=== PATIENT | male | born 1965 | race Hispanic/Latino ===

== ENCOUNTER 2018-09-08 13:17 | Emergency (ER) | payer SELFPAY ==
[2018-09-08] MEDS ORDERED: Ketorolac Tromethamine 30 MG/ML VIAL ONE (14:43)
--- NOTE | 2018-09-08 15:14 | RAD ---
LUMBOSACRAL SPINE: HISTORY: Back and bilateral hip pain, radiating down the legs for three months. FINDINGS: Three views of the lumbosacral spine show the patient to be status post posterior fusion at L4 throug h S1 with bilateral pedicle screws. No perihardware lucency is seen. Laminectomies have been perfor med at L5. The vertebral bodies demonstrate normal height without acute fracture or subluxation. IMPRESSION: Post surgical changes of the lumbar spine without acute osseous abnormality. POS: NELSY
--- NOTE | 2018-09-08 16:40 | RAD ---
TWO VIEWS RIGHT FEMUR: 09/08/18 HISTORY: Right upper leg pain. COMPARISON: Views right hip on 08/24/12. FINDINGS: There is stable postsurgical changes related to right total hip prosthesis. Alignment is stable and t here is no evidence of a hardware complication. No fracture or dislocation is seen involving the righ t femur. No other findings. IMPRESSION: 1. No acute osseous abnormality right femur. 2. Right total hip prosthesis unchanged compared to a study in 2013. POS: NELSY
--- NOTE | 2018-09-08 16:41 | RAD ---
FOUR VIEWS RIGHT KNEE: 09/08/18 HISTORY: Right upper leg pain. FINDINGS: There is no evidence of a fracture, dislocation, or other osseous abnormality involving the right kne e. Vascular calcifications are seen posterior to the knee. IMPRESSION: No acute osseous abnormality. POS: LOU
== END 2018-09-08 16:30 | disposition home or self-care (01) ==
LOC: ERS 13:17
DX: M25.551 Pain in right hip (principal); F17.210 Nicotine dependence, cigarettes, uncomplicated
CPT/HCPCS: 72100; 96372; J1885

== ENCOUNTER 2019-12-10 17:00 | Inpatient (IN) | payer OTHER, SELFPAY ==
[2019-12-10 18:15] LABS: #Lymphocytes 0.8 thou/uL (1.20-3.40); #Monocytes 0.3 thou/uL (0.11-0.59); #Neutrophils 4.9 thou/uL (1.40-6.50); %Basophils 0.5 % (0.0-1.0); %Eosinophils 0.8 % (0.0-10.0); %Lymphocytes 12.5 % (21.0-51.0); %Monocytes 4.7 % (0.0-10.0); %Neutrophils 81.5 % (42.0-75.0); Hemoglobin 15.4 g/dL (14.0-18.0); Mean Corpuscular HGB CONC 32.9 g/dL (32.0-36.0); Mean Corpuscular Hemoglobin 29.3 pg (27.0-31.0); Mean Platelet Volume 7.7 fL (7.4-10.4); Platelet Count 233 thou/uL (130-400); RBC Distribution Width 11.9 % (11.5-14.5); Red Blood Cell (RBC) Count 5.24 mill/uL (4.70-6.10)
[2019-12-10] MEDS ORDERED: Ondansetron PF 4 MG/2 ML Vial ONE (18:47)
[2019-12-10] MEDS ORDERED: Ketorolac Tromethamine 30 MG/ML VIAL ONE (18:47)
[2019-12-10 18:54] LABS: ALT (SGPT) 35 U/L (8-55); AST (SGOT) 32 U/L (5-34); Albumin 4.2 g/dL (3.5-5.0); Alkaline Phosphatase 69 U/L (40-110); Anion Gap 14 mmol/L (10-20); BUN (Urea Nitrogen) 21 mg/dL (8.4-25.7); Bilirubin, Total 0.3 mg/dL (0.2-1.2); CK (CPK) 138 U/L (30-200); Calc. Creatinine Clearance 0 mL/min (70-130); Carbon Dioxide 20 mmol/L (22-29); Chloride 104 mmol/L (98-107); Estimated GFR-MDRD 65; Globulin 2.7 g/dL (2.4-3.5); Glucose 101 mg/dL (70-105); Magnesium 1.7 mg/dL (1.6-2.6); Potassium 4.3 mmol/L (3.5-5.1); Protein, Total 6.9 g/dL (6.0-8.3); Sodium 134 mmol/L (136-145)
[2019-12-10] MEDS ORDERED: HYDROmorphone 0.5 MG/0.5 ML SYRINGE ONE ×2 (18:54→20:39)
[2019-12-10 19:36] LABS: Bilirubin Negative (Negative); Blood, Urine Negative (Negative); Clarity Clear (Clear); Glucose, Urine (Dipstick) Normal (Negative); Ketone, Urine Negative (Negative); Leukocyte Negative Leu/uL (Negative); Nitrite Negative (Negative); Protein, Urine (Dipstick) Negative (Neg-Trace); Urobilinogen Normal mg/dL (Less than 2)
--- NOTE | 2019-12-10 20:28 | MRI ---
MRI Lumbar Spine WO Con History: Cauda equina. Lower extremity numbness and tingling Comparison: Lumbar spine radiograph 2019 Findings: No hydronephrosis. Likely a cyst anterior cortex inferior pole left kidney. Aortic contour is nonaneurysmal. No retroperitoneal periaortic adenopathy. Conus medullaris terminates near the superior endplate of L1. Posterior spinal fusion hardware and discectomy cages at L4-S1 with adequate osseous incorporation. L 4 and L5 laminectomy change. Mild bilateral paraspinal muscle atrophy L5-S1. Levels are as follows: L1/L2: Normal disc height and hydration. No neural foraminal or spinal canal narrowing. L2/L3: Normal disc height with small disc osteophyte complex. Mild bilateral neural foraminal narrowi ng. No significant spinal canal narrowing. L3/L4: Moderate degenerative disc space height loss with moderate disc osteophyte complex. There is e ither extruded disc versus scar extending caudally in the left paracentral zone and lateral recess along the anterior longitudinal ligament measuring 2 cm in craniocaudal length with transverse dimens ion of approximately 8 mm and AP dimension of 4 mm. This abuts the left L4, L5 and S1 nerve roots. There is rightward displacement of the cauda equina nerve roots due to mass effect. Spinal canal is n arrowed centrally to approximately 5 mm. Moderate to severe left and moderate right neural foraminal narrowing. L4/L5: Prior discectomy. Small circumferential osteophyte with mild bilateral neural foraminal narrow ing. No significant spinal canal narrowing. L5/S1: Prior discectomy. Small circumferential osteophyte. Moderate bilateral neural foraminal narrow ing with abutment of the left and right S1 nerve roots. Impression: [id number] disc degeneration at L3/L4 with what appears to be large caudal disc extrusion versus less likely scar with mass effect upon the left L4, L5, and S1 nerve roots. This disc extrusion does cause rightward deviation of the cauda equina nerve roots with the transverse spi nal canal measuring approximately 6 mm as well as the AP spinal canal measuring approximately 6 mm.
[2019-12-10] MEDS ORDERED: Promethazine 25 MG TAB PO PRN (21:02)
[2019-12-10] MEDS ORDERED: Promethazine HCl 25 MG/ML VIAL IM PRN (21:02)
[2019-12-10] MEDS ORDERED: Ondansetron PF 4 MG/2 ML Vial IVP PRN (21:02)
[2019-12-10] MEDS ORDERED: Milk Of Magnesia 30 ML UDCUP PO PRN (21:02)
[2019-12-10] MEDS ORDERED: Mag-Al 1200 mg/1200 mg/30 ML UDCUP PO PRN (21:02)
[2019-12-10] MEDS ORDERED: Dexamethasone 10 MG/ML VIAL ONE (21:20)
[2019-12-10 21:38] LABS: PTT 31.6 sec (22.9-36.1)
[2019-12-10] MEDS: Dexamethasone 4 mg/ml Vial SLOW IVP SCH (23:47)
[2019-12-10] MEDS: Morphine 2 MG/ML VIAL SLOW IVP PRN (23:47)
[2019-12-10] MEDS: tiZANidine HCl 4 MG TAB PO PRN (23:47)
[2019-12-10] MEDS: Sodium Chloride 0.9% 1,000 ML IV SCH (23:47)
[2019-12-10] MEDS: Ketorolac Tromethamine 30 MG/ML VIAL IVP SCH (23:47)
[2019-12-11 00:23] VITALS: BMI 30.4
[2019-12-11] MEDS: diphenhydrAMINE 25 MG CAP PO PRN (01:15)
[2019-12-11] MEDS: HYDROcodone/Acetaminophen 10/325 mg Tablet PO PRN ×6 (01:16→23:29)
[2019-12-11] MEDS: Morphine 2 MG/ML VIAL SLOW IVP PRN (04:16)
[2019-12-11] MEDS: Ketorolac Tromethamine 30 MG/ML VIAL IVP SCH ×4 (06:04→23:30)
[2019-12-11] MEDS: Dexamethasone 4 mg/ml Vial SLOW IVP SCH (06:04)
[2019-12-11] MEDS: Tamsulosin HCl 0.4 MG CAP PO SCH (06:04)
[2019-12-11] MEDS ORDERED: hydrALAZINE 20 MG/ML VIAL SLOW IVP PRN (09:09)
[2019-12-11] MEDS: Sodium Chloride 0.9% 1,000 ML IV SCH (10:19)
--- NOTE | 2019-12-11 12:08 | HP ---
HISTORY OF PRESENT ILLNESS: The patient is a 54-year-old male, who presented to the emergency department last night for severe back and bilateral leg pain. He reports he has a history of prior lumbar fusion from L4-S1 done approximately 10 years ago in the [place] area. He did very well after that surgery, who over the last 6 months, has had gradual development of increased back pain and bilateral claudicatory leg pain. The patient reports things became quite severe last night, limiting his walking and also was associated with some numbness and tingling around the perianal region. He presented to the emergency department for evaluation, where he had a noncontrast MRI, which was notable for a large left sided disc extrusion above his prior fusion. The patient ultimately failed pain control measures and required admission for further management. I visited the patient over the bedside. He has received steroids overnight and reports he is feeling some improvement in his back and claudicatory leg symptoms. He is quite comfortable in the bed, but has severe pain in the back and both legs, anytime he is standing or walking even short distances to the bathroom. He has not had any loss of bowel or bladder and reports the perianal sensation changes have been intermittent even since his prior fusion. PAST MEDICAL HISTORY: He reports he is otherwise healthy, denies any other prior medical problems. PAST SURGICAL HISTORY: L4-S1 decompression and fusion, bilateral hip replacements. SOCIAL HISTORY: The patient does not smoke. He drinks socially. Does not use any drugs. REVIEW OF SYSTEMS: Per history of present illness. ALLERGIES: HE HAS NO KNOWN DRUG ALLERGIES. MEDICATIONS: He does not take any medications. PHYSICAL EXAMINATION: GENERAL: He is sitting in the bed comfortably. No acute distress. VITAL SIGNS: Stable. HEENT: Head, normocephalic and atraumatic. Eyes, PERRLA. Extraocular movements intact. ENT; pink, intact, moist. He has normal voice. NECK: Nontender. Free active range of motion. No meningismus or nuchal rigidity. CARDIAC: Regular rate and rhythm. PULMONARY: Symmetric chest expansion. No dyspnea. MUSCULOSKELETAL: Free active range of motion of all extremities. No focal motor weakness is appreciated. No reflex asymmetry. His sensation is intact to light touch. NEUROLOGIC: A and O x4. No focal neurologic deficits are appreciated. ASSESSMENT AND PLAN: The patient is a 54-year-old male, who was found to have left sided disc extrusion at L3-L4 above his prior fusion with severe back pain and bilateral leg pain when he stands and walks. He is feeling a bit better with the steroids, that we have given him overnight. We will continue to work on pain control and mobilization. I have discussed the case with Dr. Kent and ultimately, if the patient does not improve, he may require further surgical intervention. Job ID: [id number] MTDD
--- NOTE | 2019-12-11 13:44 | RAD ---
EXAM: LUMBAR SPINE THREE VIEWS: 12/11/19 HISTORY: Lumbar fusion, assess hardware. COMPARISON: 09/08/18. FINDINGS: Postoperative laminectomy and pedicle screw placement and fusion changes at L4, L5, and S1. No signi ficant malalignment. Overall appearance is stable. Evidence for bilateral total hip replacement. IMPRESSION: Extensive postoperative changes at L4, L5, and S1, overall stable. POS: OFF
[2019-12-11 14:50] LABS: SARS-CoV-2 MS2 Positive; SARS-CoV-2 N Gene Negative; SARS-CoV-2 S Gene Negative; SARS-CoV-2 by NAA Not Detected (NotDetected); SARS-CoV-2 orf1ab Negative
--- NOTE | 2019-12-11 18:44 | PRG ---
DATE OF SERVICE: 12/11/2019 SUBJECTIVE: The patient is seen and examined. I agree with Kathryn Pradhan's evaluation on 12/11/2019. The patient is a 54-year-old man reasonably in good health with history of 2 prior spinal surgeries, one here and one in [place], most recently 10 years ago. He has had 1 year of progressive back pain and now several days of agonizing left greater than right leg pain and numbness. He is essentially mobilized by his pain and requiring aggressive narcotic management. MRI has revealed significant L3-4 degenerative stenosis as well as a left L3-4 disk herniation above his previous L4 through S1 fusion. IMPRESSION AND PLAN: I discussed treatment options at length with the patient given the intractability of his pain symptoms and the neurologic deficit, who have decided on surgical intervention. We discussed the indication, risks, and alternatives of the removal of hardware and the left L3-4 decompression and extension and fusion. He expressed understanding. All questions were answered for both him and his mother. They expressed understanding and wished to proceed. We will plan to proceed on Friday. Job ID: [id number]
[2019-12-11] MEDS: tiZANidine HCl 4 MG TAB PO PRN (20:32)
[2019-12-12] MEDS: Sodium Chloride 0.9% 1,000 ML IV SCH ×2 (01:50→14:39)
[2019-12-12] MEDS: Ketorolac Tromethamine 30 MG/ML VIAL IVP SCH (05:57)
[2019-12-12] MEDS: Tamsulosin HCl 0.4 MG CAP PO SCH (05:57)
[2019-12-12] MEDS: HYDROcodone/Acetaminophen 10/325 mg Tablet PO PRN ×3 (09:23→20:28)
--- NOTE | 2019-12-12 09:35 | PRG ---
DATE OF SERVICE: 12/12/2019 SUBJECTIVE: The patient is doing well on the floor. He reports improvement of his pain and he is feeling comfortable as long as he is lying in the bed. He continues to have significant back and claudicatory leg pain when he gets up. He was visited by Dr. Kent yesterday and we have planned for removal of hardware and a left L3-L4 decompression, extension, and fusion. OBJECTIVE: On exam this morning, the patient is awake, alert, in no acute distress. He has free active range of motion of all extremities. No focal motor weakness. No reflex asymmetry. ASSESSMENT AND PLAN: The patient is to be made n.p.o. at midnight. All preop orders have done. Plans for a left L3-L4 decompression and extension and fusion with removal of hardware tomorrow. Job ID: [id number]
[2019-12-12] MEDS: tiZANidine HCl 4 MG TAB PO PRN ×2 (09:52→20:32)
[2019-12-12] MEDS: diphenhydrAMINE 25 MG CAP PO PRN ×2 (15:59→22:21)
[2019-12-12] MEDS ORDERED: Labetalol HCl 100 MG/20 ML VIAL IVPB PRN ×2 (20:11→20:25)
[2019-12-13] MEDS: Sodium Chloride 0.9% 1,000 ML IV SCH ×2 (03:17→16:43)
[2019-12-13] MEDS: diphenhydrAMINE 25 MG CAP PO PRN ×2 (06:03→18:39)
[2019-12-13] MEDS: HYDROcodone/Acetaminophen 10/325 mg Tablet PO PRN ×2 (06:03→20:33)
[2019-12-13] MEDS: Tamsulosin HCl 0.4 MG CAP PO SCH (06:03)
[2019-12-13] MEDS: Morphine 2 MG/ML VIAL SLOW IVP PRN ×3 (06:50→23:52)
[2019-12-13] MEDS ORDERED: Fentanyl 100 MCG/2 ML VIAL ONE ×3 (11:35→14:09)
[2019-12-13] MEDS ORDERED: CEFAZOLIN 2 GM in Premix Bag 1 BAG IVPB SCH (12:00)
[2019-12-13] MEDS ORDERED: Rocuronium Bromide 10 MG/ML (10ML VIAL) ONE (12:22)
[2019-12-13] MEDS ORDERED: Glycopyrrolate 0.2 MG/ML 5 ML SYRINGE ONE (12:22)
[2019-12-13] MEDS ORDERED: Lidocaine 1% PF 5 ML VIAL ONE (12:22)
[2019-12-13] MEDS ORDERED: PHENYLEPHRINE-NS 100 MCG/ML 10 ML SYRINGE ONE (12:22)
[2019-12-13] MEDS ORDERED: Ondansetron PF 4 MG/2 ML Vial ONE (12:22)
[2019-12-13] MEDS ORDERED: EPHEDRINE 25 MG/5 ML SYRINGE ONE (12:22)
[2019-12-13] MEDS ORDERED: PROPOFOL 200 MG/20 ML VIAL ONE (12:22)
[2019-12-13] MEDS ORDERED: Ketorolac Tromethamine 30 MG/ML VIAL ONE (12:22)
[2019-12-13] MEDS ORDERED: Dexamethasone 20 MG/5 ML VIAL ONE (12:22)
[2019-12-13] MEDS ORDERED: Promethazine HCl 25 MG/ML VIAL SLOW IVP PRN (12:41)
[2019-12-13] MEDS ORDERED: Promethazine HCl 25 MG/ML VIAL IM PRN (12:41)
[2019-12-13] MEDS ORDERED: HYDROmorphone 2 MG/ML VIAL SLOW IVP PRN (12:41)
[2019-12-13] MEDS ORDERED: Ondansetron HCl/PF 4 MG/2 ML Vial IVP PRN (12:41)
[2019-12-13] MEDS ORDERED: Morphine Sulfate 2 MG/ML SYRINGE SLOW IVP PRN (12:41)
[2019-12-13] MEDS ORDERED: PACU-Morphine 4MG/ML VIAL SLOW IVP PRN (12:41)
--- NOTE | 2019-12-13 14:20 | EKG ---
Test Reason : Blood Pressure : / mmHG Vent. Rate : 065 BPM Atrial Rate : 065 BPM P-R Int : 128 ms QRS Dur : 086 ms QT Int : 404 ms P-R-T Axes : 039 052 057 degrees QTc Int : 420 ms Normal sinus rhythm Normal ECG Confirmed by SAMUEL AHUJA M.D. ([id number]) on 12/13/2019 2:20:06 PM Referred By: ALISA Confirmed By:SAMUEL AHUJA M.D.
--- NOTE | 2019-12-13 18:00 | OP ---
DATE OF PROCEDURE: 12/13/2019 ACTIVE DIRECTORY SPECIALIST: Lorne. PROCEDURE PERFORMED: Attempted removal of hardware, L4 through S1; exploration of spinal fusion, L4 through S1; left L3-L4 laminectomy, facetectomy, and diskectomy; posterolateral arthrodesis at L3-L4; BMP demineralized bone matrix; local morselized autograft. DESCRIPTION OF PROCEDURE: The patient was brought to the operating room and intubated. He was rolled in a prone position on gel-filled chest rolls. The previous incision was opened, extended superiorly, exposing L3 through the sacrum. It was immediately obvious that the prior hardware was completely encased by bone including even parts of the crosslinking mechanism. We made several attempts to begin to remove bone to expose this hardware, but it was quite dense and was clear. This would require extensive bony destruction to even access the hardware. Exploring this region further was cleared that there was solid bony fusion from L4 through S1. We next turned our attention to left L3-L4. We performed laminectomy, facetectomy, and diskectomy. We identified the left L4 nerve root and beneath this was the expected L3-L4 extruded and inferiorly migrated disk herniation. The degree of inferior extrusion was quite substantial. We did remove extensive amount of extruded disk material and complete decompressed left L4 and the medial thecal sac and then removed additional disk material from the L3-L4 interspace. After complete decompression had been secured, we prepared the posterolateral surfaces of the purpose of arthrodesis and placed a combination of BMP on Gelfoam with demineralized bone matrix local morselized autograft in the lateral recesses for the purpose of arthrodesis. Immaculate hemostasis was secured. Vancomycin powder was applied and the wound was closed in anatomic layers. Job ID: [id number]
[2019-12-13] MEDS: tiZANidine HCl 4 MG TAB PO PRN (20:33)
[2019-12-14] MEDS: HYDROcodone/Acetaminophen 10/325 mg Tablet PO PRN ×2 (06:13→12:54)
[2019-12-14] MEDS: diphenhydrAMINE 25 MG CAP PO PRN (06:14)
[2019-12-14] MEDS: Tamsulosin HCl 0.4 MG CAP PO SCH (06:14)
[2019-12-14] MEDS: Sodium Chloride 0.9% 1,000 ML IV SCH (07:02)
[2019-12-14] MEDS: tiZANidine HCl 4 MG TAB PO PRN (11:22)
[2019-12-14 16:05] VITALS: BP 154/95; TEMP 98.8
--- NOTE | 2019-12-15 02:10 | DIS ---
DATE OF ADMISSION: 12/10/2019 DATE OF DISCHARGE: 12/14/2019 HOSPITAL COURSE: Patient is a 54-year-old male admitted by us on 12/10/2019 for low back and bilateral leg pain. MRI of the lumbar spine revealed a large disk herniation above his prior fusion at L3-L4. Patient underwent attempted removal of hardware from L4-S1 and left L3-L4 laminectomy, facetectomy, and diskectomy. Unfortunately, his old hardware from L4-S1 was significantly encased in bone and unable to be removed. The left L3-L4 region was decompressed and diskectomy was performed. BMP was placed. Pt was placed in a TLSO brace postoperatively. Following the surgery, patient was transitioned back to the Med/Surg floor, where his pain has been well-controlled with p.o. medications, he was tolerating a regular diet, and he was voiding appropriately. Exam on postoperative day 1, patient awake, alert, in no acute distress. He has free active range of motion of all extremities. No focal motor weakness. There was a small amount of incisional drainage, dark red blood. A new dressing was applied and patient was instructed on dressing changes. PLAN: We will plan to dismiss the patient to home. I have discussed home care precautions. We will follow up with the patient in 2 weeks. Scripts for Chandler, Zanaflex, and Keflex were provided. [employer] was checked prior to discharge. Job ID: [id number] MTDD
== END 2019-12-14 16:15 | disposition home or self-care (01) | DRG 460 ==
LOC: ERS 17:00 → SURG A 21:07
PROVIDERS: ADMIT Neurological Surgery; ATTEND Neurological Surgery
PROC: 0SG0071 Fusion of Lumbar Vertebral Joint with Autologous Tissue Substitute, Posterior Approach, Posterior Column, Open Approach (ICD-10-PCS; principal; 2019-12-13)
PROC: 0SB20ZZ Excision of Lumbar Vertebral Disc, Open Approach (ICD-10-PCS; 2019-12-13)
DX: M51.26 Other intervertebral disc displacement, lumbar region (principal); G83.4 Cauda equina syndrome; Z20.828 Contact with and (suspected) exposure to other viral communicable diseases; Z96.643 Presence of artificial hip joint, bilateral; E66.9 Obesity, unspecified; Z87.891 Personal history of nicotine dependence; Z68.30 Body mass index [BMI] 30.0-30.9, adult
CPT/HCPCS: 36415; 36416; 72100; 72148; 76000; 80053; 81003; 82550; 83735; 84484; 85025; 85379; 85610; 85652; 85730; 86140; 87635; 93005; 93010; 96374; 96375; 96376; C1768; J0360; J0690; J1100; J1170; J1885; J2270; J2405; J2704; J3010; J3370; J3490; Q0163; U0003

== ENCOUNTER 2019-12-30 09:48 | Outpatient (CLI) | payer OTHER ==
--- NOTE | 2019-12-30 12:52 | RAD ---
LUMBAR SPINE 2 VIEWS: Date: 12/30/2019 HISTORY: Back pain. Recent postoperative. COMPARISON: 12/11/2019. FINDINGS: Postop laminectomy changes with pedicle screw fixation changes and intradiscal prosthesis at L4-L5 an d L5-S1. No significant malalignment. No evidence for acute fracture. IMPRESSION: Postoperative changes as above. POS: OFF
== END 2019-12-30 09:49 | disposition home or self-care (01) ==
LOC: TBSIIMAG 09:48
PROVIDERS: ATTEND Neurological Surgery
DX: M54.9 Dorsalgia, unspecified (principal); Z98.890 Other specified postprocedural states
CPT/HCPCS: 72100

== ENCOUNTER 2022-10-31 13:09 | Outpatient (CLI) | payer OTHER ==
[2022-10-31 15:41] LABS: #Basophils 0.1 10x3/uL (0.0-0.2); #Eosinphils 0.5 10x3/uL (0.0-0.5); #Monocytes 0.4 10x3/uL (0.0-1.1); #Neutrophils 3.1 10x3/uL (1.5-8.4); %Basophils 1.1 % (0.0-2.0); %Eosinophils 8.4 % (0.0-6.0); %Lymphocytes 26.5 % (18.0-47.0); %Monocytes 6.5 % (0.0-10.0); %Neutrophils 57.3 % (40.0-75.0); Hematocrit 41.3 % (38.8-50.0); Hemoglobin 14.2 g/dL (13.5-17.5); Mean Corpuscular HGB CONC 34.4 g/dL (32.0-36.0); Mean Corpuscular Hemoglobin 28.9 pg (27.0-33.0); Mean Corpuscular Volume 83.9 fl (81.2-95.1); Mean Platelet Volume 10.4 fl (7.4-10.4); Platelet Count 228 10x3/uL (150-450); RBC Distribution Width 13.3 % (11.5-14.5); Red Blood Cell (RBC) Count 4.92 10x6/uL (4.32-5.72); White Blood Cell (WBC) Count 5.4 10x3/uL (3.5-10.5)
[2022-10-31 15:58] LABS: Prothrombin Time 10.6 sec (9.5-12.1)
[2022-10-31 16:00] LABS: Anion Gap 20 mmol/L (10-20); BUN (Urea Nitrogen) 16 mg/dL (8.4-25.7); Calc. Creatinine Clearance 0 mL/min (70-130); Calcium 9.3 mg/dL (7.8-10.44); Carbon Dioxide 19 mmol/L (22-29); Chloride 104 mmol/L (98-107); Estimated GFR 63; Glucose 117 mg/dL (70-105); Sodium 139 mmol/L (136-145)
== END 2022-10-31 13:10 | disposition home or self-care (01) ==
LOC: LABBT 13:09
PROVIDERS: ATTEND Orthopaedic Surgery
DX: Z01.818 Encounter for other preprocedural examination (principal); Z47.1 Aftercare following joint replacement surgery; Z96.641 Presence of right artificial hip joint
CPT/HCPCS: 80048; 85025; 85610; 87081; 93005; 93010

== ENCOUNTER 2022-11-04 07:23 | Inpatient (IN) | payer OTHER ==
[2022-11-04] MEDS ORDERED: Tranexamic Acid 1,000 MG/10 ML VIAL ONE (08:23)
[2022-11-04] MEDS ORDERED: Sodium Chloride 0.9% 200 ML ONE (08:23)
[2022-11-04] MEDS ORDERED: CEFAZOLIN 2 GM VIAL ONE (08:23)
[2022-11-04] MEDS ORDERED: Vancomycin 1 GM/200 ML (FROZEN) BAG ONE (08:36)
[2022-11-04] MEDS ORDERED: Midazolam HCl 2 mg/2 ml Vial ONE (08:36)
[2022-11-04] MEDS ORDERED: Bupivacaine PF 0.5% 30 ML VIAL ONE ×2 (08:36→10:03)
[2022-11-04] MEDS ORDERED: fentaNYL 50 mcg/mL 1 mL Vial ONE (08:36)
[2022-11-04] MEDS ORDERED: Bupivacaine HCl 0.5%/Epinephrine 1:200,000/PF 30 ml Vial ONE (08:50)
[2022-11-04] MEDS ORDERED: diphenhydrAMINE 25 MG CAP PO PRN (09:57)
[2022-11-04] MEDS ORDERED: Zolpidem Tartrate 5 MG TAB PO PRN (09:57)
[2022-11-04] MEDS ORDERED: Promethazine HCl 25 MG/ML VIAL IM PRN ×2 (09:57→13:32)
[2022-11-04] MEDS ORDERED: Acetaminophen 325 MG TAB PO PRN (09:57)
[2022-11-04] MEDS ORDERED: Ondansetron PF 4 MG/2 ML Vial IVP PRN (09:57)
[2022-11-04] MEDS ORDERED: fentaNYL 50 mcg/mL 1 mL Vial SLOW IVP PRN ×2 (09:57)
[2022-11-04] MEDS ORDERED: Propofol 1,000 MG/100 ML VIAL IV ONE (09:58)
[2022-11-04] MEDS ORDERED: Dexmedetomidine 200 MCG/2 ML VIAL ONE (09:58)
[2022-11-04] MEDS ORDERED: HYDROmorphone 2 MG/ML VIAL SLOW IVP PRN (13:32)
[2022-11-04] MEDS ORDERED: Ondansetron HCl/PF 4 MG/2 ML Vial IVP PRN (13:32)
[2022-11-04] MEDS: Ketorolac Tromethamine 30 MG/ML VIAL IVP SCH ×2 (13:45→21:00)
[2022-11-04] MEDS ORDERED: Ketorolac Tromethamine 30 MG/ML VIAL ONE (13:51)
[2022-11-04] MEDS: Sodium Chloride 0.9% 1,000 ML IV SCH ×2 (15:29→20:09)
[2022-11-04] MEDS: CEFAZOLIN 2 GM in Sodium Chloride 0.9% 100 ML IVPB SCH ×2 (16:08→23:06)
[2022-11-04] MEDS: Gabapentin 300 MG CAP PO SCH (20:08)
[2022-11-04] MEDS: Aspirin 81 mg Enteric Coated Tablet PO SCH (20:08)
[2022-11-04] MEDS: Ferrous Gluconate 324 MG TAB PO SCH (20:08)
[2022-11-04] MEDS: HYDROcodone/Acetaminophen 10/325 mg Tablet PO PRN (20:09)
[2022-11-04] MEDS: Senokot S 8.6-50 MG TAB PO SCH (20:09)
[2022-11-04] MEDS: Ketorolac Tromethamine 0.5% Ophth Soln 3 ml Bottle R EYE PRN (20:55)
[2022-11-05] MEDS: HYDROcodone/Acetaminophen 10/325 mg Tablet PO PRN ×5 (01:55→23:02)
[2022-11-05] MEDS: Sodium Chloride 0.9% 1,000 ML IV SCH ×3 (04:11→23:54)
[2022-11-05 05:26] LABS: Hematocrit 33.8 % (42.0-52.0); Hemoglobin 11.4 g/dL (14.0-18.0); Mean Corpuscular HGB CONC 33.7 g/dL (32.0-36.0); Mean Corpuscular Hemoglobin 29.3 pg (27.0-31.0); Mean Corpuscular Volume 86.9 fl (78.0-98.0); Mean Platelet Volume 9.9 fL (7.4-10.4); Platelet Count 179 10x3/uL (130-400); RBC Distribution Width 13.2 % (11.5-14.5); Red Blood Cell (RBC) Count 3.89 mill/uL (4.70-6.10); White Blood Cell (WBC) Count 4.8 10x3/uL (4.8-10.8)
[2022-11-05] MEDS: Ketorolac Tromethamine 30 MG/ML VIAL IVP SCH ×3 (05:43→21:21)
[2022-11-05] MEDS: Ketorolac Tromethamine 0.5% Ophth Soln 3 ml Bottle R EYE PRN ×2 (05:54→23:02)
[2022-11-05] MEDS: Ferrous Gluconate 324 MG TAB PO SCH ×2 (09:26→21:21)
[2022-11-05] MEDS: Gabapentin 300 MG CAP PO SCH ×2 (09:26→21:21)
[2022-11-05] MEDS: Aspirin 81 mg Enteric Coated Tablet PO SCH ×2 (09:26→21:21)
[2022-11-05] MEDS: Senokot S 8.6-50 MG TAB PO SCH ×2 (09:26→21:21)
[2022-11-05] MEDS: Multivitamin W/ Minerals 1 TAB PO SCH (09:27)
[2022-11-06] MEDS: Ketorolac Tromethamine 30 MG/ML VIAL IVP SCH ×2 (05:42→16:07)
[2022-11-06] MEDS: Multivitamin W/ Minerals 1 TAB PO SCH (09:46)
[2022-11-06] MEDS: Ferrous Gluconate 324 MG TAB PO SCH ×2 (09:47→20:25)
[2022-11-06] MEDS: Senokot S 8.6-50 MG TAB PO SCH ×2 (09:47→20:25)
[2022-11-06] MEDS: Aspirin 81 mg Enteric Coated Tablet PO SCH ×2 (09:47→20:25)
[2022-11-06] MEDS: Gabapentin 300 MG CAP PO SCH ×2 (09:49→20:24)
[2022-11-06] MEDS: Sodium Chloride 0.9% 1,000 ML IV SCH ×2 (14:09→22:21)
[2022-11-06] MEDS: HYDROcodone/Acetaminophen 10/325 mg Tablet PO PRN (20:23)
[2022-11-07] MEDS: HYDROcodone/Acetaminophen 10/325 mg Tablet PO PRN ×2 (05:10→10:36)
[2022-11-07] MEDS: Ferrous Gluconate 324 MG TAB PO SCH (10:24)
[2022-11-07] MEDS: Multivitamin W/ Minerals 1 TAB PO SCH (10:25)
[2022-11-07] MEDS: Gabapentin 300 MG CAP PO SCH (10:25)
[2022-11-07] MEDS: Aspirin 81 mg Enteric Coated Tablet PO SCH (10:26)
[2022-11-07] MEDS: Senokot S 8.6-50 MG TAB PO SCH (10:26)
[2022-11-07] MEDS: Sodium Chloride 0.9% 1,000 ML IV SCH (11:49)
[2022-11-07 13:40] VITALS: BP 157/92; TEMP 98.2
== END 2022-11-07 14:57 | disposition home or self-care (01) | DRG 468 ==
LOC: SDC 07:23 → SURG A 09:57
PROVIDERS: ADMIT Orthopaedic Surgery; ATTEND Orthopaedic Surgery
PROC: 0SR902Z Replacement of Right Hip Joint with Metal on Polyethylene Synthetic Substitute, Open Approach (ICD-10-PCS; principal; 2022-11-04)
PROC: 0SP90JZ Removal of Synthetic Substitute from Right Hip Joint, Open Approach (ICD-10-PCS; 2022-11-04)
DX: T84.090A Other mechanical complication of internal right hip prosthesis, initial encounter (principal); Z96.642 Presence of left artificial hip joint; Z98.890 Other specified postprocedural states; Z79.899 Other long term (current) drug therapy
CPT/HCPCS: 36415; 85027; 87070; 87205; C1713; C1776; J1885; J2250; J2704; J3010; J3370-JW; J3490; S0020